=== PATIENT | male | born 1975 | race African-American/Black ===

== ENCOUNTER 2018-10-03 02:23 | Emergency (ER) | payer OTHER ==
[2018-10-03] MEDS: KETOROLAC 30 MG INJ IM (02:46)
[2018-10-03] MEDS: OXYCODONE/ACETAMINOPHEN (5/325) TAB PO (02:48)
[2018-10-03] MEDS: DIPHTH/TET/ACEL PERTUSS (ADULT) 0.5 ML VIAL IM* (03:25)
== END 2018-10-03 03:29 ==
LOC: E/R 02:23
DX: S63.91XA Sprain of unspecified part of right wrist and hand, initial encounter (principal); R51 Headache; Y04.0XXA Assault by unarmed brawl or fight, initial encounter; Z02.89 Encounter for other administrative examinations; Z23 Encounter for immunization
CPT/HCPCS: 70450; 73110-RT; 73130-RT; 90471; 90715; 96372; 99285-25